=== PATIENT | female | born 2000 | race Caucasian/White ===

== ENCOUNTER 2022-03-09 03:22 | Outpatient (CLI) ==
[~2022-03-09] VITALS: Ht 160 cm; Wt 69.9 kg
== END 2022-03-09 04:49 | disposition home or self-care (01) ==
LOC: M LDO 03:22
PROVIDERS: ATTEND Obstetrics & Gynecology
DX: O26.893 Other specified pregnancy related conditions, third trimester (principal); N89.8 Other specified noninflammatory disorders of vagina; Z3A.39 39 weeks gestation of pregnancy
CPT/HCPCS: 59025; 76815; G0463

== ENCOUNTER → 2022-03-09 | Outpatient (CLI) | payer OTHER ==
[~2022-03-09] MED LIST: ACET-683 PO; COLA100C5 PO; IBUP80TA PO; PRENTAB9 PO
== END ==
LOC: M LDO 07:33
PROVIDERS: ATTEND Obstetrics & Gynecology
DX: O26.893 Other specified pregnancy related conditions, third trimester (principal); N89.8 Other specified noninflammatory disorders of vagina; Z3A.39 39 weeks gestation of pregnancy

== ENCOUNTER 2022-03-17 10:25 | Inpatient (IN) | payer OTHER ==
[~2022-03-17] VITALS: Ht 160 cm; Wt 69.4 kg
[2022-03-17] VITALS (29 sets, daily range): BP systolic 115–147; BP diastolic 66–98
[2022-03-17 11:23] LABS: HEMATOCRIT 36.1 % (36.0-47.0); HEMOGLOBIN 12.1 g/dl (12.0-15.5); MEAN CORPUSCULAR HEMOGLOBIN 29.7 pg (27.0-33.0); MEAN CORPUSCULAR HGB CONC 33.5 g/dl (32.0-36.5); MEAN CORPUSCULAR VOLUME 88.5 fl (80.0-96.0); PLATELET COUNT, AUTOMATED 160 10^3/uL (150-450); RED BLOOD COUNT 4.08 10^6/uL (4.00-5.40); WHITE BLOOD COUNT 5.6 10^3/uL (4.0-10.0)
[2022-03-17] MEDS ORDERED: PRENTAB9 PO (11:27)
[2022-03-17] MEDS ORDERED: OXYTOCIN DRIP 30 UNITS in IV 1 EA IV SCH (11:40)
[2022-03-17] MEDS ORDERED: TRANEXAMIC ACID INJection 1,000 MG in NS 100 ML IV PRN (11:40)
[2022-03-17] MEDS ORDERED: METHYLERGONOVINE MALEATE 0.2 MG/ML VIAL (J2210) IM PRN (11:40)
[2022-03-17] MEDS ORDERED: OXYTOCIN DRIP 30 UNITS in IV 1 EA IV PRN ×4 (11:40)
[2022-03-17] MEDS ORDERED: LIDOCAINE 1% MDV 20ML VIAL INFIL PRN (11:40)
[2022-03-17] MEDS ORDERED: LACTATED RINGER'S 1000 ML IV STA (11:40)
[2022-03-17] MEDS ORDERED: PENICILLIN G POTASSIUM IV 5 MU in D5W MINI-BAG PLUS 100 ML IV STA (11:40)
[2022-03-17] MEDS: LR 1,000 ML IV SCH ×3 (13:18→23:40)
[2022-03-17] MEDS ORDERED: FENTANYL 2MCG/ML ROPIVACAINE 0.2% IN 0.9% NACL 100ML IVBAG As Ordered ONE (13:42)
[2022-03-17] MEDS ORDERED: NALOXONE INJ 0.4MG/1ML VIAL (J2310 PER 1MG) IV PRN (13:45)
[2022-03-17] MEDS ORDERED: ePHEDrine SULFATE 25 MG/5 ML(5MG/ML) SYRINGE IVP PRN (13:45)
[2022-03-17] MEDS ORDERED: diphenhydrAMINE 50MG/ML VIAL (J1200) IV PRN (13:45)
[2022-03-17] MEDS ORDERED: LR 500 ML IV PRN (13:45)
[2022-03-17] MEDS ORDERED: ONDANSETRON 4MG 2ML VIAL IV PRN ×2 (13:45→23:40)
[2022-03-17] MEDS ORDERED: EPIDURAL/PCA KEYS XX PRN (13:45)
[2022-03-17] MEDS ORDERED: FENTANYL/ROPIVACAINE/NACL BAG 100 ML EPIDURAL SCH (13:45)
[2022-03-17] MEDS: PENICILLIN G POTASSIUM IV 2.5 MU in IV 1 EA IV SCH ×2 (16:45→20:14)
[2022-03-17 23:09] LABS: CORD GAS ABE A -9.4; CORD GAS ABE V -6.7; CORD GAS HCO3 A 21.2 MEQ/L; CORD GAS HCO3 V 20.7 MEQ/L; CORD GAS O2 SAT A 40.5 %; CORD GAS PCO2 A 67.2 mmHg; CORD GAS PCO2 V 48.5 mmHg; CORD GAS PH A 7.117 UNITS; CORD GAS PH V 7.248 UNITS; CORD GAS PO2 A 22.6 mmHg; CORD GAS PO2 V 25.1 mmHg; CORD GAS SBC A 15.9 MEQ/L; CORD GAS SBC V 18.1 MEQ/L; CORD GAS TCO2 A 23.3 MEQ/L; CORD GAS TCO2 V 22.2 MEQ/L
[2022-03-17] MEDS ORDERED: METHYLERGONOVINE MALEATE 0.2 MG TAB PO PRN (23:40)
[2022-03-17] MEDS ORDERED: PROMETHAZINE 25 MG TAB PO PRN (23:40)
[2022-03-17] MEDS ORDERED: DOCUSATE SODIUM 100MG CAPSULE PO PRN (23:40)
[2022-03-17] MEDS ORDERED: RHOGAM 300 MCG (1500 IU) INJ (J2790) IM SCH (23:40)
[2022-03-17] MEDS ORDERED: DIBUCAINE 1% OINTMENT 30GM TOP PRN (23:40)
[2022-03-18] VITALS (7 sets, daily range): BP systolic 113–147; BP diastolic 71–93
[2022-03-18] MEDS: IBUPROFEN 800 MG TAB PO SCH ×3 (00:29→16:01)
[2022-03-18] MEDS: ACETAMINOPHEN 500 MG TAB PO SCH ×4 (00:30→17:36)
[2022-03-18 07:09] LABS: HEMATOCRIT 33.1 % (36.0-47.0); HEMOGLOBIN 10.7 g/dl (12.0-15.5); MEAN CORPUSCULAR HEMOGLOBIN 28.9 pg (27.0-33.0); MEAN CORPUSCULAR HGB CONC 32.3 g/dl (32.0-36.5); MEAN CORPUSCULAR VOLUME 89.5 fl (80.0-96.0); PLATELET COUNT, AUTOMATED 133 10^3/uL (150-450); WHITE BLOOD COUNT 11.6 10^3/uL (4.0-10.0)
[2022-03-18] MEDS: LR 1,000 ML IV SCH ×2 (07:40→15:40)
[2022-03-18] MEDS: PRENATAL VITAMINS CHEWABLE TABLET PO SCH (08:02)
[2022-03-18] MEDS ORDERED: PRENATAL VITAMINS CHEWABLE TABLET PO SCH (09:00)
[2022-03-19] MEDS ORDERED: ACETAMINOPHEN 500 MG TAB PO SCH
[2022-03-19] MEDS: IBUPROFEN 800 MG TAB PO SCH ×2 (01:31→08:03)
[2022-03-19] MEDS: ACETAMINOPHEN 500 MG TAB PO SCH ×2 (01:31→06:35)
[2022-03-19] MEDS ORDERED: COLA100C5 PO (05:08)
[2022-03-19] MEDS ORDERED: ACET-683 PO (05:08)
[2022-03-19] MEDS ORDERED: IBUP80TA PO (05:08)
[2022-03-19 06:01] VITALS: BP 118/71
[2022-03-19] MEDS: PRENATAL VITAMINS CHEWABLE TABLET PO SCH (08:02)
[2022-03-19] MEDS ORDERED: MEASLES,MUMPS,RUBELLA VACCINE INJ (MMR-II) (90707) SC.IMMUN ONE (09:00)
== END 2022-03-19 10:56 | disposition home or self-care (01) | DRG 807 ==
LOC: M LDI 10:25 → M OBS 03-18 01:25
PROVIDERS: ADMIT Obstetrics & Gynecology; ATTEND Obstetrics & Gynecology
PROC: 10E0XZZ Delivery of Products of Conception, External Approach (ICD-10-PCS; principal; 2022-03-17)
PROC: 0KQM0ZZ Repair Perineum Muscle, Open Approach (ICD-10-PCS; 2022-03-17)
PROC: 3E033VJ Introduction of Other Hormone into Peripheral Vein, Percutaneous Approach (ICD-10-PCS; 2022-03-17)
DX: O48.0 Post-term pregnancy (principal); Z37.0 Single live birth; Z3A.41 41 weeks gestation of pregnancy; O70.1 Second degree perineal laceration during delivery